=== PATIENT | male | born 1960 | race Caucasian/White ===

== ENCOUNTER 2018-08-23 19:25 | Emergency (ER) | payer BC | END 2018-08-23 23:07 | disposition home or self-care (01) | LOC: COL.ER 19:25 | DX: R07.89 Other chest pain (principal); F17.210 Nicotine dependence, cigarettes, uncomplicated; Z79.82 Long term (current) use of aspirin ==

== ENCOUNTER 2018-10-06 18:28 | Emergency (ER) | payer BC ==
[~2018-10-06] VITALS: Ht 185.4 cm; Wt 77.3 kg
[~2018-10-06 18:28] MED LIST: CARAFATE 1GM1 G PO; CHANTIX 0.5MG0.5 MG PO
[2018-10-06 18:34] VITALS: TEMP 99.5
[2018-10-06] MEDS ORDERED: RT ADVAIR 128 DISKUS (19:39)
[2018-10-06] MEDS ORDERED: FLAGYL500 MG (19:39)
[2018-10-06] MEDS ORDERED: AMOXICILLIN875 MG (19:40)
[2018-10-06 20:43] LABS: BASO # 0.1 (0.0-0.2); BASO % 0.7 % (0.0-2.0); EOS # 0.1 (0.0-0.7); EOS % 0.9 % (0-4.0); GRAN # 7.7 (1.4-6.5); GRAN % 71.3 % (42.2-75.2); HEMATOCRIT 48.9 % (42.0-52.0); HEMOGLOBIN 16.5 g/dl (13.5-18.0); LYMPH # 1.9 (1.2-3.4); LYMPH % 17.6 % (20.0-51.0); MEAN CELL VOLUME 96 fl (80.0-100.0); MEAN CORPUSCULAR HEMOGLOBIN 33 pg (27.0-31.0); MEAN CORPUSCULAR HGB CONC 34 g/dl (33.0-37.0); MEAN PLATELET VOLUME 9.6 fl (7.4-10.4); MONO % 9.2 % (1.7-9.3); PLATELET COUNT 276 K/mm3 (130-400); RED BLOOD COUNT 5.07 M/mm3 (4.20-5.60); REDCELL DISTRIBUTION WIDTH-CV 14.3 % (11.5-14.5)
[2018-10-06 20:54] LABS: ALBUMIN 4.4 gm/dL (3.5-5.0); BILIRUBIN,TOTAL 0.9 mg/dL (0.0-1.0); C-REACTIVE PROTEIN 3.9 mg/dL (0.0-0.9); CALCIUM 9.6 mg/dL (8.4-10.2); CREATININE, serum 0.93 (0.66-1.25); POTASSIUM 4.3 mmol/L (3.4-5.0)
[2018-10-06] MEDS ORDERED: NORCO 325 MG-7.1 TAB PO (22:18)
[2018-10-06 23:00] VITALS: BP 142/79; PULSE 82
== END 2018-10-06 23:03 | disposition home or self-care (01) ==
LOC: COL.ER 18:28
PROVIDERS: Nurse Practitioner
DX: K04.7 Periapical abscess without sinus (principal); F17.210 Nicotine dependence, cigarettes, uncomplicated
CPT/HCPCS: J1170; J7030; Q9967

== ENCOUNTER → 2021-07-12 | Outpatient (CLI) | payer BC ==
[~2021-07-12] MED LIST changes: +AMOXICILLIN875 MG; +FLAGYL500 MG; +NORCO 325 MG-7.1 TAB PO; +RT ADVAIR 128 DISKUS
== END ==
LOC: COL.RAD 14:55
DX: Z12.2 Encounter for screening for malignant neoplasm of respiratory organs (principal); F17.210 Nicotine dependence, cigarettes, uncomplicated